=== PATIENT | female | born 1955 | race Caucasian/White ===

== ENCOUNTER 2020-04-30 07:58 | Day surgery (SDC) | payer BC, OTHER ==
[~2020-04-30 07:58] MED LIST: Lidocaine 2% 100 MG/5 ML Syringe ONE; Propofol 200 MG/20 ML SDV ONE
[2020-04-30] MEDS ORDERED: Propofol 200 MG/20 ML SDV IV ONE (07:59)
[2020-04-30] MEDS ORDERED: Lidocaine 2% 100 MG/5 ML Syringe IVPUSH ONE (07:59)
[2020-04-30] MEDS ORDERED: Sodium Chloride 0.9% 10 ML Syringe FLUSH PRN (08:00)
[2020-04-30] MEDS ORDERED: Lactated Ringers 1,000 ML IV SCH (08:00)
--- NOTE | 2020-04-30 10:04 | PCM.PRNOTE ---
- Free Text/Narrative Note: PROCEDURE PERFORMED: Esophagogastroduodenoscopy with biopsy and colonoscopy PRE-PROCEDURE DIAGNOSIS/INDICATION FOR PROCEDURE: Iron deficiency anemia, occult blood loss positive; last colonoscopy and for same reason 10/2013 and 11/2013, respectively, without abnormalities aside from hiatal hernia CONSENT: Informed consent was obtained prior to the procedure after discussion of the risks (including pain, bleeding, infection, perforation, missed polyps, inability to completely remove polyps or complete procedure necessitating repeat procedures, adverse reaction to anesthesia, cardiovascular event), benefits and alternatives and expected outcomes. Verbal consent given and consent form signed. PROCEDURAL PAUSE: Completed SEDATION: Per anesthesia DESCRIPTION OF PROCEDURE: Patient was brought back to the operating room and placed in a left lateral decubitus position. Bite block placed. After adequate sedation and anesthetic was administered, endoscope was inserted into the patient's mouth and was passed easily through the esophagus and stomach into the duodenum without difficulty. Examined duodenum normal appearing. Pylorus normal appearing; biopsies obtained for evaluation for H.pylori. Stomach, including viewing in retroflexion, normal appearing. 3cm hiatal hernia was present with the gastroesophageal junction at 37cm from the incisors and diaphragm at 40cm. Esophagus normal appearing. The scope was removed without difficulty. Rectal exam was performed revealing no abnormalities. A lubricated Olympus Video Colonoscope was inserted into the rectum and air insufflation was performed. The colonoscope was advanced through the rectum, sigmoid, descending , transverse, and ascending colon without difficulties. The cecum was reached and the ileocecal valve as well as the appendiceal orifice were identified and pictorially documented. After adequate visualization of the cecum, the scope was withdrawn, giving 360-degree views of the colonic mucosa and retroflexion was performed in the rectum with the following findings noted: Ileocecal valve: Normal Cecum: Normal Ascending colon: Normal Hepatic flexure: Normal Transverse colon: Normal Splenic flexure: Normal Descending colon: Normal Sigmoid colon: Normal Rectum: Normal The scope was straightened, air suction performed, and the scope withdrawn without complication. Preparation adequacy good: [place] Bowel Prep score 9/9. Patient tolerated the procedure well. No complications. IMPRESSION: Esophagogastroduodenoscopy performed revealing 3cm hiatal hernia. Biopsies for H.pylori also obtained with pathology now pending. Colonoscopy performed revealing no abnormalities. PLAN: - Will contact the patient when pathology results received. - Given persistent iron deficiency and positive occult blood loss, recommend small bowel evaluation for source of bleeding.
== END 2020-04-30 11:00 | disposition home or self-care (01) ==
LOC: KA.SDS 07:58
PROVIDERS: ATTEND Family Medicine
DX: R19.5 Other fecal abnormalities (principal); K31.89 Other diseases of stomach and duodenum; K44.9 Diaphragmatic hernia without obstruction or gangrene; Z11.59 Encounter for screening for other viral diseases; D50.9 Iron deficiency anemia, unspecified; M47.816 Spondylosis without myelopathy or radiculopathy, lumbar region; E87.1 Hypo-osmolality and hyponatremia; R91.1 Solitary pulmonary nodule; I10 Essential (primary) hypertension; E78.2 Mixed hyperlipidemia; Z98.890 Other specified postprocedural states; Z79.899 Other long term (current) drug therapy; Z87.891 Personal history of nicotine dependence
CPT/HCPCS: 43239; 45378; 87635; J2001; J2704; J7120; U0002